=== PATIENT | female | born 1995 | race Two or more races ===

== ENCOUNTER 2025-02-22 00:22 | Emergency (ER) | payer OTHER ==
[~2025-02-22] VITALS: Ht 154.9 cm; Wt 54.4 kg
[2025-02-22] MEDS ORDERED: PRENATE DHA SO1 EAC1 (00:33)
[2025-02-22 00:34] VITALS: BP 99/66; O2SAT 99
[2025-02-22] MEDS ORDERED: MIRALAX17 GM PO (02:57)
== END 2025-02-22 03:00 ==
LOC: ER 01:00
DX: O99.612 Diseases of the digestive system complicating pregnancy, second trimester (principal); K92.89 Other specified diseases of the digestive system; Z3A.16 16 weeks gestation of pregnancy; K59.00 Constipation, unspecified

== ENCOUNTER 2025-06-05 09:35 | Emergency (ER) | payer OTHER ==
[~2025-06-05] VITALS: Ht 154.9 cm; Wt 63.5 kg
[~2025-06-05 09:35] MED LIST: MIRALAX17 GM PO; PRENATE DHA SO1 EAC1
[2025-06-05 10:06] VITALS: BP 103/72; O2SAT 98
[2025-06-05] MEDS ORDERED: 0.9 % SODIUM CHLORIDE 1,000 ML IV STA (11:17)
[2025-06-05] MEDS ORDERED: ONDANSETRON HCL 2 MG/ML VIAL IV STA (11:17)
[2025-06-05] MEDS ORDERED: FAMOTIDINE/PF 20 MG/2 ML VIAL IV STA (11:18)
[2025-06-05] MEDS ORDERED: ONDANSETRON HCL 2 MG/ML VIAL ONE (12:06)
[2025-06-05] MEDS ORDERED: FAMOTIDINE/PF 20 MG/2 ML VIAL ONE (12:06)
[2025-06-05 12:51] LABS: BASO % 0.1 % (0.1-1.2); EOS # 0.11 (0.04-0.54); EOS % 1.1 % (0.7-7.0); LYMPH # 0.55 (1.18-3.74); LYMPH % 5.3 % (19.3-53.1); MEAN PLATELET VOLUME 10.70 fl (9.4-12.4); MONO # 0.46 (0.24-0.82); MONO % 4.4 % (4.7-12.5); NEUT # 9.24 (1.56-6.13); NEUT % 88.4 % (34.0-71.1); RED CELL DISTRIBUTION WIDTH 12.4 % (11.6-14.4)
[2025-06-05 13:26] LABS: BUN CREA RATIO 19.0 (7.0-25.0); CREATININE SERUM 0.53 mg/dL (0.55-1.02); GFR 137.36; GLUCOSE FASTING 93.0 mg/dL (65-100); OSMOLALITY SERUM 282.0 MOSM/KG (275-295)
[2025-06-05 14:39] LABS: COVID-19 AG NEGATIVE (NEGATIVE)
[2025-06-05] MEDS ORDERED: DELSYM30 MG/5 M1 PO (14:53)
[2025-06-05] MEDS ORDERED: AZITHROMYCIN250 MG PO (14:53)
== END 2025-06-05 15:21 | disposition home or self-care (01) ==
LOC: ER 09:36
PROVIDERS: General Practice
DX: O26.893 Other specified pregnancy related conditions, third trimester (principal); Z3A.31 31 weeks gestation of pregnancy; B34.9 Viral infection, unspecified; R11.10 Vomiting, unspecified; R05.8 Other specified cough; A08.8 Other specified intestinal infections; Z20.822 Contact with and (suspected) exposure to COVID-19